=== PATIENT | male | born 1935 | race Caucasian/White ===

== ENCOUNTER 2017-04-17 09:18 | Outpatient (CLI) | payer OTHER ==
[~2017-04-17 09:18] MED LIST: ACID CONTROL20 MG; ASA81 MG; ATROVENT 00.5 MG/2.5 IH; COREG CR10 MG; DIOVAN160 M1; MULTI VITAMIN1 EACH; NIACIN500 MG; SIMVASTATIN20 MG; SINGULAIR 10MG10 MG PO
== END 2017-04-17 09:42 | disposition home or self-care (01) ==
LOC: SONOGRAMA 09:18
DX: R31.0 Gross hematuria (principal)

== ENCOUNTER 2018-11-06 11:53 | Emergency (ER) | payer OTHER ==
[~2018-11-06] VITALS: Ht 180.3 cm; Wt 111.1 kg
== END 2018-11-06 14:13 | disposition home or self-care (01) ==
LOC: ER 11:53
DX: K05.00 Acute gingivitis, plaque induced (principal)

== ENCOUNTER 2019-11-04 14:28 | Outpatient (CLI) | payer OTHER | END 2019-11-04 14:32 | disposition home or self-care (01) | LOC: LAB 14:28 | DX: Z03.818 Encounter for observation for suspected exposure to other biological agents ruled out (principal) ==

== ENCOUNTER 2020-05-21 10:06 | Outpatient (CLI) | payer OTHER | END 2020-05-21 10:11 | disposition home or self-care (01) | LOC: LAB 10:06 | PROVIDERS: ATTEND Radiology Diagnostic Radiology | DX: N20.0 Calculus of kidney (principal) ==

== ENCOUNTER → 2020-05-22 | Outpatient (CLI) | payer OTHER | END | disposition home or self-care (01) | LOC: TOM 09:45 | PROVIDERS: ATTEND Internal Medicine | DX: R07.89 Other chest pain (principal); I71.2 Thoracic aortic aneurysm, without rupture | CPT/HCPCS: 71275; Q9965 ==

== ENCOUNTER 2020-05-28 10:16 | Outpatient (CLI) | payer OTHER | END 2020-05-28 16:34 | disposition home or self-care (01) | LOC: OFIC 805 10:16 | PROVIDERS: ATTEND Otolaryngology | DX: H90.3 Sensorineural hearing loss, bilateral (principal); H61.23 Impacted cerumen, bilateral; H93.8X3 Other specified disorders of ear, bilateral ==

== ENCOUNTER 2020-06-05 08:19 | Outpatient (CLI) | payer OTHER | END 2020-06-05 09:34 | disposition home or self-care (01) | LOC: OFIC 805 08:19 | PROVIDERS: ATTEND Otolaryngology | DX: H93.8X3 Other specified disorders of ear, bilateral (principal); H61.23 Impacted cerumen, bilateral ==